=== PATIENT | female | born 1990 | race African-American/Black ===

== ENCOUNTER 2017-02-03 00:57 | Emergency (ER) | payer OTHER ==
[~2017-02-03] VITALS: Ht 160 cm; Wt 82.0 kg
[2017-02-03 01:01] VITALS: BP 132/64; PULSE 98; RESP 16; TEMP 98.8; O2SAT 96
[2017-02-03 04:21] VITALS: BP 107/55; PULSE 56; RESP 18; TEMP 98.4; O2SAT 97
[2017-02-03] MEDS ORDERED: SODIUM CHLOR 0.9% 1000 ML INJ 1,000 ML IV SCH (04:25)
[2017-02-03] MEDS ORDERED: ONDANSETRON HCL 4 MG/2 ML VIAL IVP ONE (04:30)
[2017-02-03] MEDS ORDERED: SODIUM CHLORIDE 0.9% FLUSH 10 ML FLUSH IV FLUSH PRN (04:30)
[2017-02-03] MEDS ORDERED: LIDOCAINE VISCOUS 2% SOLN 15 ML UDC PO ONE (04:30)
[2017-02-03] MEDS ORDERED: MORPHINE SULFATE 8 MG/ML INJ IV PUSH ONE (04:30)
[2017-02-03] MEDS ORDERED: ALUMINUM/MAGNESIUM/SIMETH 30 ML CUP PO ONE (04:30)
[2017-02-03 05:06] LABS: AUTOMATED NEUTROPHIL # 7.9 TH/MM3 (1.8-7.7); BASOPHIL % 0.3 % (0.0-2.0); EOSINOPHIL # 0.2 TH/MM3 (0-0.4); EOSINOPHIL % 1.8 % (0.0-4.0); HEMATOCRIT 32.7 % (35.0-46.0); HEMO FLAGS DIFF FINAL; LYMPH % 7.3 % (9.0-44.0); LYMPHOCYTE # 0.7 TH/MM3 (1.0-4.8); MEAN CELL VOLUME 80.5 FL (80.0-100.0); MEAN CORPUSCULAR HEMOGLOBIN 26.6 PG (27.0-34.0); MEAN CORPUSCULAR HGB CONC 33.1 % (32.0-36.0); MONO % 5.5 % (0.0-8.0); NEUT % 85.1 % (16.0-70.0); PLATELET COUNT 264 TH/MM3 (150-450); RED BLOOD COUNT 4.07 MIL/MM3 (4.00-5.30); RED CELL DISTRIBUTION WIDTH 14.6 % (11.6-17.2); WHITE BLOOD COUNT 9.3 TH/MM3 (4.0-11.0)
[2017-02-03 05:07] VITALS: RESP 18
[2017-02-03 05:08] LABS: BLOOD, URINE NEG (NEG); COMMENT (UR) CULT NOT INDICATED; CULTURE IF INDICATED CULT NOT INDICATED; GLUCOSE,URINE NEG (NEG); KETONE, URINE NEG (NEG); MUCUS URINE FEW /lpf (OCC); NITRITE,URINE NEG (NEG); PH, URINE 5.5 (5.0-8.5); SQUAMOUS EPITHELIAL CELL URINE 1 /hpf (0-5); URINE COLOR LIGHT-YELLOW (YELLW/STRAW)
[2017-02-03 05:12] LABS: ALT (GPT) 22 U/L (10-53); ANION GAP 7 MEQ/L (5-15); AST (GOT) 24 U/L (15-37); BICARBONATE 23.4 MEQ/L (21.0-32.0); BLOOD UREA NITROGEN 11 MG/DL (7-18); CHLORIDE 106 MEQ/L (98-107); GLOMERULAR FILTRATION RATE 126 ML/MIN (>89); POTASSIUM 4.2 MEQ/L (3.5-5.1); SODIUM (NA) 136 MEQ/L (136-145)
[2017-02-03 05:14] LABS: ALKALINE PHOSPHATASE 49 U/L (45-117); TOTAL BILIRUBIN ADULT 0.4 MG/DL (0.2-1.0)
[2017-02-03] MEDS ORDERED: IOHEXOL 350 MG/ML 10 ML VIAL (for RAD DIAG) IV ONE (05:20)
--- NOTE | 2017-02-03 05:36 | PD ---
HPI Chief Complaint: Abdominal Pain Time Seen by Provider: 04:08 Travel History International Travel<30 days: No Contact w/Intl Traveler<30days: No Traveled to known affect area: No History of Present Illness HPI 26-year-old female arrives complaining of complains of abdominal pain for about 12 hours. She's had nausea. She's had at least 10 episodes of nonbloody diarrhea. She's had no vomiting. No vaginal bleeding or discharge. Last menstruation 2 weeks prior. No urinary complaint. No similar prior episodes. She denies any unusual food she thinks might cause the diarrhea. She's had no improvement after Pepto-Bismol. Appetite has been decreased. She denies past medical and past surgical history. She has no known drug allergies. She does not smoke tobacco. [facility] Past Medical History Medical History: Denies Significant Hx ?: Unknown Past Surgical History Surgical History: No Previous Surgery Social History Alcohol Use: No Tobacco Use: No Substance Use: No Allergies-Medications (Allergen,Severity, Reaction): Coded Allergies: No Known Allergies (Unverified , 02/03/17) Reported Meds & Prescriptions Reported Meds & Active Scripts Active Zofran Odt (Ondansetron Odt) 4 Mg Tab 4 Mg SL Q8HR PRN Review of Systems Except as stated in HPI: all other systems reviewed are Neg General / Constitutional: No: Fever Physical Exam Narrative GENERAL: 26-year-old female well-nourished well-developed no acute distress SKIN: Focused skin assessment warm/dry. HEAD: Atraumatic. Normocephalic. EYES: Pupils equal and round. No scleral icterus. No injection or drainage. ENT: No nasal bleeding or discharge. Mucous membranes pink and moist. NECK: Trachea midline. No JVD. CARDIOVASCULAR: Regular rate and rhythm. No murmur appreciated. RESPIRATORY: No accessory muscle use. Clear to auscultation. Breath sounds equal bilaterally. GASTROINTESTINAL: Soft. Minimal tenderness to palpation of the right abdomen. MUSCULOSKELETAL: No obvious deformities. No clubbing. No cyanosis. No edema. NEUROLOGICAL: Awake and alert. No obvious cranial nerve deficits. Motor grossly within normal limits. Normal speech. PSYCHIATRIC: Appropriate mood and affect; insight and judgment normal. Data Data Last Documented VS Vital Signs Date Time Temp Pulse Resp B/P Pulse Ox O2 Delivery O2 Flow Rate FiO2 02/03/17 05:07 18 02/03/17 05:05 Room Air 02/03/17 04:21 98.4 56 97 Vital signs reviewed Orders Complete Blood Count With Diff (02/03/17 04:25) Comprehensive Metabolic Panel (02/03/17 04:25) Lipase (02/03/17 04:25) Urinalysis - C+S If Indicated (02/03/17 04:25) Ct Abd/Pel W Iv Contrast(Rout) (02/03/17 04:25) Iv Access Insert/Monitor (02/03/17 04:25) Ecg Monitoring (02/03/17 04:25) Oximetry (02/03/17 04:25) Ondansetron Inj (Zofran Inj) (02/03/17 04:30) Sodium Chlor 0.9% 1000 Ml Inj (Ns 1000 M (02/03/17 04:25) Sodium Chloride 0.9% Flush (Ns Flush) (02/03/17 04:30) Morphine Inj (Morphine Inj) (02/03/17 04:30) Al-Mag Hy-Si 40-40-4 Mg/Ml Liq (Mag-Al P (02/03/17 04:30) Lidocaine 2% Viscous (Xylocaine 2% Visco (02/03/17 04:30) Ed Urine Pregnancytest Poc (02/03/17 04:25) Iohexol 350 Inj (Omnipaque 350 Inj) (02/03/17 05:20) Labs Laboratory Tests Test 02/03/17 02/03/17 04:40 04:50 White Blood Count 9.3 TH/MM3 Red Blood Count 4.07 MIL/MM3 Hemoglobin 10.8 GM/DL Hematocrit 32.7 % Mean Corpuscular Volume 80.5 FL Mean Corpuscular Hemoglobin 26.6 PG Mean Corpuscular Hemoglobin 33.1 % Concent Red Cell Distribution Width 14.6 % Platelet Count 264 TH/MM3 Mean Platelet Volume 8.0 FL Neutrophils (%) (Auto) 85.1 % Lymphocytes (%) (Auto) 7.3 % Monocytes (%) (Auto) 5.5 % Eosinophils (%) (Auto) 1.8 % Basophils (%) (Auto) 0.3 % Neutrophils # (Auto) 7.9 TH/MM3 Lymphocytes # (Auto) 0.7 TH/MM3 Monocytes # (Auto) 0.5 TH/MM3 Eosinophils # (Auto) 0.2 TH/MM3 Basophils # (Auto) 0.0 TH/MM3 CBC Comment DIFF FINAL Differential Comment Sodium Level 136 MEQ/L Potassium Level 4.2 MEQ/L Chloride Level 106 MEQ/L Carbon Dioxide Level 23.4 MEQ/L Anion Gap 7 MEQ/L Blood Urea Nitrogen 11 MG/DL Creatinine 0.69 MG/DL Estimat Glomerular Filtration 126 ML/MIN Rate Random Glucose 91 MG/DL Calcium Level 8.4 MG/DL Total Bilirubin 0.4 MG/DL Aspartate Amino Transf 24 U/L (AST/SGOT) Alanine Aminotransferase 22 U/L (ALT/SGPT) Alkaline Phosphatase 49 U/L Total Protein 7.2 GM/DL Albumin 3.8 GM/DL Lipase 132 U/L Urine Color LIGHT-YELLOW Urine Turbidity CLEAR Urine pH 5.5 Urine Specific [place] 1.011 Urine Protein NEG mg/dL Urine Glucose (UA) NEG mg/dL Urine Ketones NEG mg/dL Urine Occult Blood NEG Urine Nitrite NEG Urine Bilirubin NEG Urine Urobilinogen LESS THAN 2.0 MG/DL Urine Leukocyte Esterase NEG Urine RBC 1 /hpf Urine WBC 1 /hpf Urine Squamous Epithelial 1 /hpf Cells Urine Mucus FEW /lpf Microscopic Urinalysis Comment CULT NOT INDICATED MDM Medical Decision Making Medical Screen Exam Complete: Yes Emergency Medical Condition: Yes Medical Record Reviewed: Yes Differential Diagnosis Constipation, Gastritis, Acute Cholecystitis, Biliary Colic, Pancreatitis, [place] , Hepatitis, Bowel Obstruction, Cystitis, Mesenteric Ischemia, AAA, Appendicitis , Renal Stone/Hydronephrosis, GERD, perforated viscous Narrative Course CBC & BMP Diagram 02/03/17 04:40 LFTs normal Lipase normal UA no UTI POC negative Last 24 hours Impressions Abdomen/Pelvis CT 02/03/17 0425 Signed Impressions: Service Date/Time: Friday, February 03, 2017 05:18 - CONCLUSION: 1. No acute inflammatory process. 2. Small amount of pelvic free fluid, likely physiologic. 3. Hepatic and right renal subcentimeter low densities likely benign. Wagner Bobo MD The patient is resting comfortably and feels better, is alert and in no distress. The patients results and examination findings were discussed. The repeat examination is unremarkable and benign. The history, exam, diagnostic testing, and current condition do not suggest any significant pathology to warrant further testing, continued ED treatment, admission, or surgical evaluation at this point. The vital signs have been stable. The patient does not have uncontrollable pain, intractable vomiting, or other significant symptoms. The patient's condition is stable and appropriate for discharge. The patient will pursue further outpatient evaluation with a primary care physician or other designated or consulting physician as indicated in the discharge instructions. The patient expressed understanding and was agreeable with this plan. Diagnosis Primary Impression: Abdominal pain Qualified Code: R10.9 - Abdominal pain, unspecified location Additional Impression: Nausea vomiting and diarrhea Referrals: Primary Care Physician 2 days Additional Instructions: You have a choice when it comes to health care, and we are glad that you chose [facility]. Hopefully, we have met your expectations on today's visit. You are welcome to return to [facility] at any time, as we are committed to meeting the health care needs of our community. Med/Other Pt SpecificInfo: Prescription(s) given Scripts Ondansetron Odt (Zofran Odt)4 Mg Tab4 Mg SL Q8HR PRN (Nausea/Vomiting) #10 TAB Ref 0 Prov:Hank Castillo MD 02/03/17 Disposition: DISCHARGE HOME Condition: Stable Hank Castillo MD Feb 03, 2017 05:36
--- NOTE | 2017-02-03 05:39 | RADRPT ---
EXAM DATE/TIME: 02/03/2017 05:18 [place] COMPARISON: No previous studies available for comparison. INDICATIONS : Diffuse abdominal pain with nausea, vomiting and diarrhea. IV CONTRAST: 95 cc Omnipaque 350 (iohexol) IV ORAL CONTRAST: No oral contrast ingested. RADIATION DOSE: 11.28 CTDIvol (mGy) MEDICAL HISTORY : None SURGICAL HISTORY : None. ENCOUNTER: Initial ACUITY: 1 day PAIN SCALE: 5/10 LOCATION: Bilateral abdomen TECHNIQUE: Volumetric scanning of the abdomen and pelvis was performed. Using automated exposure control and ad justment of the mA and/or kV according to patient size, radiation dose was kept as low as reasonably achievable to obtain optimal diagnostic quality images. FINDINGS: LOWER LUNGS: The visualized lower lungs are clear. LIVER: Homogeneous density without lesion. There is no dilation of the biliary tree. No calcified gallston es. Subcentimeter low-density adjacent to the falciform ligament. SPLEEN: Normal size without lesion. PANCREAS: Within normal limits. KIDNEYS: Normal in size and shape. There is no mass, stone or hydronephrosis. ADRENAL GLANDS: Within normal limits. Subcentimeter low density upper pole right kidney. VASCULAR: There is no aortic aneurysm. BOWEL/MESENTERY: The stomach, small bowel, and colon demonstrate no acute abnormality. There is no free intraperitone al air or fluid. ABDOMINAL WALL: Within normal limits. RETROPERITONEUM: There is no lymphadenopathy. BLADDER: No wall thickening or mass. REPRODUCTIVE: Small amount of pelvic free fluid. INGUINAL: There is no lymphadenopathy or hernia. MUSCULOSKELETAL: Within normal limits for patient age. CONCLUSION: 1. No acute inflammatory process. 2. Small amount of pelvic free fluid, likely physiologic. 3. Hepatic and right renal subcentimeter low densities likely benign. Wagner Bobo MD on February 03, 2017 at 5:35 Board Certified Radiologist. This report was verified electronically.
[2017-02-03] MEDS ORDERED: ZOFR4TAB3 SL (05:49)
[2017-02-03 07:05] VITALS: BP 105/57
== END 2017-02-03 07:50 | disposition home or self-care (01) ==
LOC: NEPC 00:57
DX: R10.9 Unspecified abdominal pain (principal); R19.7 Diarrhea, unspecified
CPT/HCPCS: 74177; 80053; 81001; 83690; 84703; 85025; 96361; 96374; 96375; 99284; J2270; J2405; J7030; Q9967

== ENCOUNTER 2017-03-26 18:01 | Emergency (ER) | payer OTHER ==
[~2017-03-26] VITALS: Ht 157.5 cm; Wt 82.0 kg
[~2017-03-26 18:01] MED LIST: ZOFR4TAB3 SL
[2017-03-26 18:03] VITALS: BP 152/82; PULSE 70; RESP 20; TEMP 98.8; O2SAT 100
--- NOTE | 2017-03-26 18:21 | PD ---
HPI Chief Complaint: Oral / Dental Pain or Problem Time Seen by Provider: 18:21 Travel History International Travel<30 days: No Contact w/Intl Traveler<30days: No Traveled to known affect area: No History of Present Illness HPI 26-year-old female presents to the emergency Department with complaint of left lower dental pain 3 days. Reports fever of 99.0 last night. Denies vomiting. Denies facial edema or erythema. Has taken ibuprofen, Tylenol, Goody powder with no relief of symptoms. Pain is constant. No known relieving factors. Has no other medical complaints. No other modifying factors or associated signs and symptoms. PFSH Past Medical History ?: Not LMP: 03/01/17 Social History Alcohol Use: No Tobacco Use: No Substance Use: No Allergies-Medications (Allergen,Severity, Reaction): Coded Allergies: No Known Allergies (Unverified , 03/26/17) Reported Meds & Prescriptions Reported Meds & Active Scripts Active Amoxicillin 500 Mg Cap 500 Mg PO BID 10 Days Ibuprofen 800 Mg Tab 800 Mg PO Q6HR PRN Peridex Liq (Chlorhexidine Gluconate (Mouth) Liq) 0.12% Soln 15 Ml SWISH-SPIT BID 10 Days Magic Mouthwash Pediatric/Adult Liq (Lidocaine/Diphenhydr/Alum/Mg/Simeth) 60 Ml Susp 5 Ml SWISH-SPIT Q3HR PRN Each 5mL contains: Diphenydramine 4.5mg, Viscous Lidocaine 2% 10mg, Maalox Advanced Regular Strength 2.7ml Zofran Odt (Ondansetron Odt) 4 Mg Tab 4 Mg SL Q8HR PRN Review of Systems Except as stated in HPI: all other systems reviewed are Neg Physical Exam Narrative GENERAL: Well-nourished, well-developed patient, in no acute distress; afebrile , nontoxic-appearing SKIN: Warm and dry. HEAD: Atraumatic. Normocephalic. No facial edema, erythema, tenderness on palpation. No lymphadenopathy. EYES: Pupils equal and round. No scleral icterus. No injection or drainage. ENT: Mucosa pink and moist. Airway patent. MOUTH: Mucous membranes moist, no lesions, tongue and gums appear normal. Left lower tooth second and third molars with tenderness on palpation; third molar appears impacted in in the gums and the gingiva surrounding is edematous and with tenderness on palpation; no obvious abscess noted. Left lower second molar has large dental cavity. NECK: Trachea midline. No lymphadenopathy. CARDIOVASCULAR: Regular rate. RESPIRATORY: No accessory muscle use. GASTROINTESTINAL: Rounded. MUSCULOSKELETAL: No obvious deformities. No clubbing. No cyanosis. No edema. NEUROLOGICAL: Awake and alert. Oriented 3. No obvious cranial nerve deficits. Motor grossly within normal limits. Normal speech. PSYCHIATRIC: Appropriate mood and affect; insight and judgment normal. Data Data Last Documented VS Vital Signs Date Time Temp Pulse Resp B/P Pulse Ox O2 Delivery O2 Flow Rate FiO2 03/26/17 18:03 98.8 70 20 152/82 100 Room Air Orders Ibuprofen (Motrin) (03/26/17 18:30) Ketorolac Inj (Toradol Inj) (03/26/17 19:00) MDM Medical Decision Making Medical Screen Exam Complete: Yes Emergency Medical Condition: Yes Medical Record Reviewed: Yes Differential Diagnosis Dentalgia, dental abscess, infected dental cavity Narrative Course 25-year-old female with dentalgia to left lower second and third molars. Standing gingiva is edematous and without erythema, drainage. No signs of obvious abscess no facial erythema or edema. No lymphadenopathy. Patient is afebrile and nontoxic-appearing. She reports low-grade fever of 99.0 last night. Denies vomiting. Toradol administered in the ER.. Emergency information dental sheet provided. Amoxicillin, Magic mouthwash, Peridex mouth rinse, ibuprofen prescribed for home. Instructed patient to follow up with dentist. Patient verbalizes understanding and agreement with treatment plan. Patient is medically cleared and stable for discharge. Discussed reasons to return to the emergency department. Instructed patient to follow up with primary care provider. Patient agrees with treatment plan. The patients vital signs are stable and the patient is stable for outpatient follow-up and treatment. Patient discharged home, stable and in no acute distress. Diagnosis Primary Impression: Dentalgia Referrals: Dentist Primary Care Physician Patient Instructions: Dental Abscess (ED), Dental Caries (ED), General Instructions, Toothache (ED) Departure Forms: Tests/Procedures, Work Release Enter return to work date: March 27, 2017 Additional Instructions: Complete full course of antibiotics Ibuprofen as directed and as needed to reduce pain and inflammation Use Magic mouthwash rinse as directed and as needed to decrease pain Use Peridex as directed for oral hygiene Warm compresses to the affected area Follow-up with dentist Follow-up with primary care provider Return to emergency department immediately with worsening of symptoms Med/Other Pt SpecificInfo: Prescription(s) given Scripts Amoxicillin 500 Mg [id number] Mg PO BID 10 Days Ref 0 Prov:SumanChandni glaser 03/26/17 Ibuprofen 800 Mg [id number] Mg PO Q6HR PRN (PAIN) #30 TAB Ref 0 Prov:Chandni Zepeda 03/26/17 Chlorhexidine Gluconate (Mouth) Liq (Peridex Liq)0.12% Soln15 Ml SWISH-SPIT BID 10 Days Ref 0 Prov:Chandni Zepeda 03/26/17 Pseypktmrdlrxkj-Inddpyosm-Jzq-Alum-Simeth Liq (Magic Mouthwash Pediatric/Adult Liq)60 Ml Susp5 Ml SWISH-SPIT Q3HR PRN (PAIN SCALE 1 TO 10) #60 ML Ref 0 Each 5mL contains: Diphenydramine 4.5mg, Viscous Lidocaine 2% 10mg, Maalox Advanced Regular Strength 2.7ml Prov:Chandni Zepeda 03/26/17 Disposition: 01 DISCHARGE HOME Condition: Stable Chandni Zepeda March 26, 2017 18:21
[2017-03-26] MEDS ORDERED: PERI0.126 SWISH-SPIT (18:24)
[2017-03-26] MEDS ORDERED: AMOX500C PO (18:24)
[2017-03-26] MEDS ORDERED: IBUP800T23 PO (18:24)
[2017-03-26] MEDS ORDERED: MAGICPED SWISH-SPIT (18:24)
[2017-03-26] MEDS ORDERED: IBUPROFEN 800 MG TAB PO ONE (18:30)
[2017-03-26] MEDS ORDERED: KETOROLAC TROMETHAMINE 60 MG/2 ML (IM) VIAL IM ONE (19:00)
== END 2017-03-26 19:00 | disposition home or self-care (01) ==
LOC: NEPK 18:01
DX: K08.89 Other specified disorders of teeth and supporting structures (principal); R50.9 Fever, unspecified
CPT/HCPCS: 96372; 99282; J1885

== ENCOUNTER 2017-06-11 17:44 | Emergency (ER) | payer OTHER ==
[~2017-06-11 17:44] MED LIST changes: +AMOX500C PO; +IBUP800T23 PO; +MAGICPED SWISH-SPIT; +PERI0.126 SWISH-SPIT
[2017-06-11 17:52] VITALS: BP 141/80; PULSE 56; RESP 14; TEMP 98.1; O2SAT 99
== END 2017-06-11 20:21 | disposition left against medical advice (07) ==
LOC: NED 17:44
DX: Z53.21 Procedure and treatment not carried out due to patient leaving prior to being seen by health care provider (principal)
CPT/HCPCS: 99281